=== PATIENT | female | born 1945 | race Caucasian/White ===

== ENCOUNTER 2021-02-24 09:16 | Emergency (ER) | payer MEDICARE, BC ==
[2021-02-24 09:22] VITALS: BP 126/73; PULSE 87; RESP 18; TEMP 97.8
--- NOTE | 2021-02-24 09:31 | ED ---
Eye Problem HPI - General Chief complaint: Eye Problems Stated complaint: Eye issue Time Seen by Provider: 02/24/21 09:23 Source: patient, RN notes reviewed Mode of arrival: ambulatory Limitations: no limitations - History of Present Illness Initial comments: 75-year-old female presents emergency Department chief complaint of right thigh redness. She states that her noticed that yesterday afternoon she denies any pain no visual changes no headache dizziness no blood thinners. Patient states that she woke up today and seemed to slightly worse. Patient states she wears glasses which is normal for her. Patient offers no other complaints. - Related Data Allergies Allergy/AdvReac Type Severity Reaction Status Date / Time Sulfa (Sulfonamide AdvReac Unknown Verified 02/24/21 09:22 Antibiotics) Review of Systems ROS Statement: Those systems with pertinent positive or pertinent negative responses have been documented in the HPI. ROS Other: All systems not noted in ROS Statement are negative. Past Medical History Past Medical History: No Reported History History of Any Multi-Drug Resistant Organisms: None Reported Past Surgical History: No Surgical Hx Reported Past Psychological History: No Psychological Hx Reported Smoking Status: Never smoker Past Alcohol Use History: Daily Past Drug Use History: None Reported General Exam Limitations: no limitations General appearance: alert, in no apparent distress Head exam: Present: atraumatic, normocephalic, normal inspection Eye exam: Present: PERRL, EOMI, conjunctival injection (Right eye subconjunctival hemorrhage in inferior aspect). Absent: normal appearance, scleral icterus, periorbital swelling ENT exam: Present: normal exam, normal oropharynx, mucous membranes moist, TM's normal bilaterally Neck exam: Present: normal inspection, full ROM. Absent: tenderness, meningismus, lymphadenopathy Respiratory exam: Present: normal lung sounds bilaterally. Absent: respiratory distress, wheezes, rales, rhonchi, stridor Cardiovascular Exam: Present: regular rate, normal rhythm, normal heart sounds. Absent: systolic murmur, diastolic murmur, rubs, gallop, clicks Course Vital Signs 02/24/21 09:17 Temperature 97.8 F Pulse Rate 87 Respiratory 18 Rate Blood Pressure 126/73 O2 Sat by Pulse 98 Oximetry Medical Decision Making - Medical Decision Making Patient has a subconjunctival hemorrhage patient is on no blood thinners no visual changes no ocular pain. Patient advised to follow-up for recheck and return for any worsening change in symptoms. Disposition Clinical Impression: Subconjunctival hemorrhage of right eye Disposition: HOME SELF-CARE Condition: Stable Instructions (If sedation given, give patient instructions): Subconjunctival Hemorrhage (ED) Additional Instructions: Please return to the Emergency Department if symptoms worsen or any other concerns. Is patient prescribed a controlled substance at d/c from ED?: No Referrals: None,Stated [Primary Care Provider] - 1-2 days Tereso Upton MD [STAFF PHYSICIAN] - 1-2 days Time of Disposition: 09:31
== END 2021-02-24 09:47 | disposition home or self-care (01) ==
LOC: EC 09:16
DX: H11.31 Conjunctival hemorrhage, right eye (principal)
CPT/HCPCS: 99283